=== PATIENT | male | born 1945 | race Two or more races ===

== ENCOUNTER → 2017-09-30 | Outpatient (CLI) | payer OTHER ==
[~2017-09-30] MED LIST: AMBIEN10 MG PO; CIPRO750 MG PO; Colace 100MG PO; NEURONTIN PO; PERCOCET 5/3251 TAB PO
== END | disposition home or self-care (01) ==
LOC: RAD 501 09:10
DX: M48.07 Spinal stenosis, lumbosacral region (principal); Z98.1 Arthrodesis status

== ENCOUNTER → 2017-10-14 | Outpatient (CLI) | payer OTHER | END | disposition home or self-care (01) | LOC: RAD 501 09:04 | DX: J98.4 Other disorders of lung (principal) ==

== ENCOUNTER 2019-01-08 14:08 | Outpatient (CLI) | payer OTHER | END 2019-01-08 14:14 | disposition home or self-care (01) | LOC: RAD 14:08 | DX: I51.7 Cardiomegaly (principal) ==

== ENCOUNTER 2019-12-12 11:13 | Outpatient (CLI) | payer OTHER | END 2019-12-12 11:18 | disposition home or self-care (01) | LOC: TOM 11:13 | DX: R06.02 Shortness of breath (principal) ==

== ENCOUNTER 2020-02-29 09:29 | Outpatient (CLI) | payer OTHER | END 2020-02-29 09:37 | disposition home or self-care (01) | LOC: TOM 09:29 | DX: J34.89 Other specified disorders of nose and nasal sinuses (principal); J32.0 Chronic maxillary sinusitis ==

== ENCOUNTER 2020-10-03 08:38 | Outpatient (CLI) | payer OTHER | END 2020-10-03 08:55 | disposition home or self-care (01) | LOC: SONOGRAMA 08:38 → MAMO-SONO 10:15 | DX: R10.84 Generalized abdominal pain (principal) ==